=== PATIENT | female | born 1955 | race Caucasian/White ===

== ENCOUNTER → 2018-07-30 | Outpatient (CLI) | payer OTHER ==
[~2018-07-30] VITALS: Ht 160 cm; Wt 117.9 kg
[~2018-07-30] MED LIST: ASPIR 8181 MG PO; CARAFATE 1 GM TA1 G1 PO; CELEBREX 200 M200 M1 PO; CENTRUM SILVER1 EAC4 PO; DEXAMETHASONE 0.1% OPHTHALMIC; OMEGA-31000 M1 PO; PROTONIX40 M1 PO; SYNTHROID112 MC1 PO; VITAMIN D1000 UNI1 PO
--- NOTE | ~2018-07-30 | EKG ---
[address] [address] ELECTROCARDIOGRAM REPORT Name: GUSTAVO DIOR Room #: [facility]#: [id number] Admission: 07/30/18 Attend Phys: Jean Winston Discharge: Date of : 51 Report #: [id number] THIS REPORT FOR: //name// [facility] Test Date: 2018-07-30 Test Time: 07:46:46 Pat Name: GUSTAVO DIOR Department: Room: Gender: F Guest Services Attendant: ELIESER : 1955 Requested By: Barney Glynn Order Number: [id number] MD: Shiva Price Measurements Intervals [place] Rate: 64 P: 13 MA: 164 QRS: 30 QRSD: 90 T: 62 QT: 396 QTc: 409 Interpretive Statements Sinus rhythm Ventricular premature complex Baseline wander in lead(s) I,III,aVL No previous ECG available for comparison Electronically Signed On 07-30-2018 17:41:05 CDT by Shiva Price [email or web address] <ELECTRONICALLY SIGNED> By: Shiva Price MD 07/30/18 1741 5 5 Shiva Price MD /NED
== END | disposition home or self-care (01) ==
LOC: GI 06:36
DX: K95.09 Other complications of gastric band procedure (principal); Z98.890 Other specified postprocedural states; R94.39 Abnormal result of other cardiovascular function study; Z88.8 Allergy status to other drugs, medicaments and biological substances; Z87.891 Personal history of nicotine dependence; Z79.899 Other long term (current) drug therapy; Z90.49 Acquired absence of other specified parts of digestive tract; Z96.651 Presence of right artificial knee joint
CPT/HCPCS: 62110; 62900

== ENCOUNTER → 2018-08-08 | Outpatient (CLI) | payer OTHER ==
[~2018-08-08] VITALS: Ht 160 cm; Wt 117.9 kg
--- NOTE | ~2018-08-08 | CATHLAB ---
[facility] [address] [place] [address] INVASIVE PROCEDURE REPORT Name: GUSTAVO DIOR Room #: REG [facility]#: [id number] Admission: 08/08/18 Attend Phys: Torey Vasquez MD Discharge: Date of : 51 Date of Service: 08/09/18 0841 Report #: [id number] THIS REPORT FOR: //name// APPROVED REPORT Study performed: 08/08/2018 07:28:38 Patient Details Patient Status: Out-Patient Room #: The patient is a 63 year-old female Event Personnel Torey Vasquez Electric Razor Assembler, Amisha Baugh RN RN, Johanne Ramos RTR, JUVENAL Cobb, Torey Bertrand Monitor, Pankaj Nam RN radiology special procedure tech Performed Art Access - R radial artery Hemostasis with Hemoband Left Heart Cath w/or w/o Coronaries [id number] [facility] [id number] Initial Mod Sed Same Phys/QHP 5y [id number] Indication Dyspnea, Positive stress test Risk Factors Obesity Admission/Lab Medications/Medications given during procedure Heparin Unfract. Procedure Narrative The patient was brought electively to the Cardiac Catheterization Laboratory and was prepped and draped in a sterile manner. The Right Wrist^ was infiltrated with 1% Lidocaine subcutaneous anesthesia. A TRANSRADIAL SLENDER 6F GLIDESHEATH KIT #[id number] sheath was inserted into the Right Radial Artery^. Coronary angiography was performed using coronary diagnostic catheters. The right coronary system was accessed and visualized with a JR4 catheter. The left coronary system was accessed and visualized with a JL4 catheter. The left ventricle was accessed and visualized with a angled pigtail catheter. Left ventricular/Aortic Valve gradient assessed via catheter pullback. Left ventriculogram was performed in 30 degree projection. Closure device was deployed with a Fr VASC BAND L 27CM #[id number]. The patient tolerated the procedure well and there were no complications associated with the procedure. There was no hematoma. [facility] [address] [place] [address] INVASIVE PROCEDURE REPORT Name: GUSTAVO DIORE Room #: REG [facility]#: [id number] Admission: 08/08/18 Attend Phys: Torey Vasquez MD Discharge: Date of : 51 Date of Service: 08/09/18 0841 Report #: [id number] Intraoperative Conscious Sedation Sedation start time: 08:41 Case end Time: 09:20 Fentanyl 25 mcg Versed 2 mg Fluoro Time: 2.25 minutes Dose: DAP 5851.00 cGycm2 679 mGy Contrast Type and Amount: Omnipaque 100 ml Coronary Angiography The patient's coronary anatomy is left dominant. [place] Artery Percent Stenosis Left Main: 0 % Prox LAD: 30 % Mid/Distal LAD: 0 % Circumflex: 0 % RCA: 0 % Ramus: % Left Ventriculography The left ventricular ejection fraction is estimated to be 60-65%. Left ventricular wall motion abnormalities are not present. There is no mitral insufficiency. Hemodynamics The aortic pressure is 144/93 mmHg with a mean of 116 mmHg. The left ventricular pressure is 154/19 mmHg with a mean of mmHg. The left ventricular end diastolic pressure is 25 mmHg. There was no gradient across the aortic valve upon pullback. Pullback from the left ventricle to the aorta revealed no gradient across the aortic valve. Conclusion 1. minimal cad 2. normal LV function 3. false positive TMT Recommendations Aggressive Medical Therapy <ELECTRONICALLY SIGNED> By: Torey Vasquez MD, FACC 08/09/18840 0 0 Torey Vasquez MD, FACC /INF
[2018-08-08 07:54] LABS: HEMATOCRIT 41.3 % (37.0-47.0); HEMOGLOBIN 13.8 gm/dL (12.0-15.0); MCH 30.2 pg (26.0-34.0); MCHC 33.6 g/dL (28.0-37.0); RBC 4.59 mil/uL (4.20-5.00); RDW 14.1 % (10.5-14.5); WBC 6.8 thou/uL (4.0-11.0)
[2018-08-08 08:07] LABS: CALCIUM 9.2 mg/dL (8.5-10.1); CREATININE 0.8 mg/dL (0.6-1.0)
[2018-08-08 08:11] VITALS: BP 143/78
== END | disposition home or self-care (01) ==
LOC: CATH 07:19
PROVIDERS: Internal Medicine Cardiovascular Disease
DX: I25.10 Atherosclerotic heart disease of native coronary artery without angina pectoris (principal); E11.9 Type 2 diabetes mellitus without complications; E03.9 Hypothyroidism, unspecified; I42.9 Cardiomyopathy, unspecified; E66.09 Other obesity due to excess calories; K21.9 Gastro-esophageal reflux disease without esophagitis; Z90.49 Acquired absence of other specified parts of digestive tract; Z98.890 Other specified postprocedural states; Z79.899 Other long term (current) drug therapy; Z82.49 Family history of ischemic heart disease and other diseases of the circulatory system; Z87.891 Personal history of nicotine dependence; Z88.8 Allergy status to other drugs, medicaments and biological substances; Z79.82 Long term (current) use of aspirin